=== PATIENT | female | born 1950 | race Caucasian/White ===

== ENCOUNTER → 2020-01-15 | Outpatient (CLI) | payer MEDICARE, BC, OTHER ==
--- NOTE | 2020-01-16 01:45 | REPPI ---
Clinical: Dyspnea . Comparison: None . Findings: The mediastinum and cardiac silhouette are stable and within normal limits for portable technique. The lung quintero are clear without acute consolidation, effusion, or pneumothorax. Skeletal structures are intact. Impression: No acute cardiopulmonary process appreciated. Electronically Signed by Valentin Ewing MD 01/16/2020 01:37 A
== END ==
LOC: M PLAIMG 15:25
PROVIDERS: ATTEND Psychiatry & Neurology Neurology
DX: R06.00 Dyspnea, unspecified (principal)

== ENCOUNTER → 2020-02-16 | Outpatient (CLI) | payer MEDICARE, BC, OTHER ==
--- NOTE | 2020-02-16 15:10 | REP ---
NONCONTRAST CT STUDY OF THE CHEST: Low-dose screening exam. CT FINDINGS: There are postoperative sutures and some fibrosis in the left lower lobe. Mild bilateral lower lobe bronchiectasis is evident. There are benign yogesh fissural nodules. There is a 3 mm nodular density in the right middle lobe on page 66 of 110 in series 201 of today's study. There is a peripheral 2 mm nodule in the right lower lobe on page 40. IMPRESSION: Lung RADS category 2 findings. Repeat screening study recommended 1 year. Electronically Signed by Charan Garcia MD 02/16/2020 05:45 P
== END ==
LOC: M RAD 13:45
PROVIDERS: ATTEND Nurse Practitioner Family
DX: Z12.2 Encounter for screening for malignant neoplasm of respiratory organs (principal); Z87.891 Personal history of nicotine dependence; J84.10 Pulmonary fibrosis, unspecified; J47.9 Bronchiectasis, uncomplicated; R91.8 Other nonspecific abnormal finding of lung field

== ENCOUNTER → 2021-04-07 | Outpatient (CLI) | payer MEDICARE, BC, OTHER | LOC: M RAD 13:55 | PROVIDERS: ATTEND Nurse Practitioner Family | DX: Z12.2 Encounter for screening for malignant neoplasm of respiratory organs (principal); Z87.891 Personal history of nicotine dependence; J47.9 Bronchiectasis, uncomplicated; R91.8 Other nonspecific abnormal finding of lung field ==

== ENCOUNTER → 2021-07-08 | Outpatient (CLI) | payer MEDICARE, BC, OTHER ==
--- NOTE | 2021-07-08 15:34 | REP ---
INDICATION: ABN FINDING OF LUNG. COMPARISON: Lung screening CT 04/07/2021, 02/16/2020; CT without IV 07/04/2018. TECHNIQUE: Noncontrast scanning through the chest with coronal and sagittal reconstructions. FINDINGS: Lungs are well inflated there is emphysematous changes in the mid and upper lung zones. On image 49 there is a stable Lakisha fissural nodule unchanged on all 3 priors dating back to 2018 this is in the lateral segment of the right middle lobe. In the anterior segment of the right upper lobe on image 46 is a 5 mm triangular shaped nodule also stable for 2 years. Superior segment pleural base nodule on image 47 of the lower lobe is also stable. A not see any new nodules or interval changes in the left lung. There is curvilinear fibrotic and atelectatic change in the medial basal segment of the left lower lobe. There is lateral basal segment fibrotic change in the left lower lobe in the mid axillary line subpleural region also stable. Cylindrical bronchiectatic changes are evident. No pleural effusion, calcified pleural plaque, pleural based mass or other acute finding. Heart is not grossly enlarged. There is no pericardial thickening or effusion. The aorta has calcifications in its ascending and arch portions but but no aneurysm. No pathologic sized mediastinal or hilar adenopathy. No pericardial thickening or effusion. See no hiatal hernia. Bone windows show spine, sternum, manubrium, medial clavicles, visualized portions of scapulae, glenohumeral joints, humeral heads and ribs without any acute finding. That portion of upper abdomen included was also unremarkable and unchanged. IMPRESSION: 1. Stable pattern of peripheral nodules, curvilinear fibro atelectatic change in the left lower lobe, linear fibrotic changes elsewhere and cylindrical bronchiectasis. No new or acute finding. Stable exam from dating back to 07/04/2018. 2. Recommend the patient have annual low-dose screening lung CT if at high risk for lung malignancy. <Electronically signed by Omar Gordon > 07/08/21 [id number]
== END ==
LOC: M RAD 13:34
PROVIDERS: ATTEND Nurse Practitioner Family
DX: R91.8 Other nonspecific abnormal finding of lung field (principal); J84.10 Pulmonary fibrosis, unspecified; J47.9 Bronchiectasis, uncomplicated

== ENCOUNTER → 2022-12-31 | Outpatient (CLI) | payer MEDICARE, BC, OTHER | LOC: M RAD 09:47 | PROVIDERS: ATTEND Nurse Practitioner Family | DX: Z12.2 Encounter for screening for malignant neoplasm of respiratory organs (principal); Z87.891 Personal history of nicotine dependence; J47.9 Bronchiectasis, uncomplicated; I70.0 Atherosclerosis of aorta; I25.10 Atherosclerotic heart disease of native coronary artery without angina pectoris; J43.9 Emphysema, unspecified ==

== ENCOUNTER → 2024-08-24 | Outpatient (CLI) | payer OTHER | LOC: M RAD 14:51 | PROVIDERS: ATTEND Physician Assistant | DX: R91.8 Other nonspecific abnormal finding of lung field (principal) ==